=== PATIENT | female | born 1955 | race Caucasian/White ===

== ENCOUNTER 2018-06-25 16:36 | Emergency (ER) | payer BC, OTHER ==
[2018-06-25 16:51] VITALS: BP 135/79
[2018-06-25] MEDS ORDERED: LET GEL TOPICAL 1 EA SYR TP ONE (16:58)
--- NOTE | 2018-06-25 17:08 | EDPHY ---
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 Denies loc Time Seen by Provider: 06/25/18 16:42 HPI/ROS: Chief Complaint: Head injury HPI: 62-year-old woman was cleaning up the garage when she bumped the piece of wood against a wall. This caused a metal bar to fall over and struck her in the left side of the head. Injury occurred about 2 hr ago. She did not have a loss of consciousness. She does sustained a laceration. She has full recollection of events before and after. She is up-to-date in her tetanus. Is complaining of pain at the site but denies having a headache. She was seen at urgent care and sent here for further evaluation. No nausea or vomiting. No vision changes. She is not on any blood thinning medications. ROS: 10 systems were reviewed and were negative except those elements noted in the HPI. PMH: Denies Social History: No smoking Family History: non-contributory Physical Exam: Gen: Awake, Alert, Airway Intact HEENT: Head: Patient has a 1 cm laceration in the left parietal, no active bleeding, there is mild tenderness surrounding. No bony tenderness or step- offs. Eyes: PERRLA, EOMI Ears: No hemotympanum Nose: No epistaxis Mouth: Normal dentition, Airway patent Face: No deformity Neck: non-tender, no stepoff, Full ROM without pain Ext: atramatic, full ROM Skin: no rash Neuro: CN II-XII intact, Strength 5/5 in all extremities, sensation intact in all extremities - Personal History Current Tetanus Diphtheria and Acellular Pertussis (TDAP): Yes Tetanus Vaccine Date: 2017 - Medical/Surgical History Hx Asthma: No Hx Chronic Respiratory Disease: No Hx Diabetes: Yes Hx Cardiac Disease: No Hx Renal Disease: No Hx Cirrhosis: No Hx Alcoholism: No Hx HIV/AIDS: No Hx Splenectomy or Spleen Trauma: No Other PMH: DM2. tonsil. hysterectomy. cataracts. Htn - Social History Smoking Status: Former smoker Constitutional: Initial Vital Signs Temperature (C) 37.3 C 06/25/18 16:43 Heart Rate 90 06/25/18 16:43 Respiratory Rate 16 06/25/18 16:43 Blood Pressure 135/79 H 06/25/18 16:43 O2 Sat (%) 97 06/25/18 16:43 O2 Delivery Mode Room Air Allergies/Adverse Reactions: liraglutide [From Victoza] Allergy (Verified 06/25/18 16:51) Penicillins Adverse Reaction (Verified 06/25/18 16:51) Home Medications: Medication Instructions Recorded JANUVIA 08/29/09 Simvastatin 08/29/09 metFORMIN HCL 08/29/09 Glimepiride 06/25/18 Phentermine HCl 06/25/18 Ramipril 06/25/18 TOPIRAMATE 06/25/18 Medical Decision Making Procedures: Procedure: Laceration repair. Verbal consent was obtained from the patient. The 1 cm laceration on the left parietal scalp was anesthetized in the usual fashion. The wound was irrigated, draped and explored to its base with a gloved finger. There were no deep structures involved. No tendon injury was identified. The wound was repaired with 2 drew. The wound repair was uncomplicated. The procedure was performed by myself. ED Course/Re-evaluation: 62-year-old woman who sustained a scalp laceration after being struck in the head by a metal pole the Grace from a wall. She does not have any risk factors for head injury. She is not on blood thinners. She has no headache. She has full recollection of events before and after. She did not have a loss of consciousness. Patient has a completely normal neurologic exam. Laceration has been repaired. She has been reassured and provided head injury instructions. Departure - Departure Disposition: Home, Routine, Self-Care Clinical Impression: Scalp laceration Condition: Good Instructions: Staple Care (ED), Laceration (ED), Head Injury (ED) Additional Instructions: Drew need to be removed in 10 days. You may take acetaminophen as needed for pain. Return to the emergency department for worsening headache, nausea, vomiting, confusion, fevers, or any other concerns. Referrals: Sloan Rubi MD [Primary Care Provider] - As per Instructions
== END 2018-06-25 17:20 | disposition home or self-care (01) ==
LOC: CED 16:36
PROC: 0HQ0XZZ Repair Scalp Skin, External Approach (ICD-10-PCS; principal; 2018-06-25)
DX: S01.01XA Laceration without foreign body of scalp, initial encounter (principal); W20.8XXA Other cause of strike by thrown, projected or falling object, initial encounter; Y92.008 Other place in unspecified non-institutional (private) residence as the place of occurrence of the external cause; Y93.9 Activity, unspecified; E11.9 Type 2 diabetes mellitus without complications; I10 Essential (primary) hypertension; Z87.891 Personal history of nicotine dependence
CPT/HCPCS: 99283-ER